=== PATIENT | female | born 1970 | race Caucasian/White ===

== ENCOUNTER 2017-07-13 11:01 | Emergency (ER) | payer SELFPAY ==
[~2017-07-13] VITALS: Ht 175.3 cm; Wt 84.0 kg
[~2017-07-13 11:01] MED LIST: FENTANYL PATCH; FIORCET; LEVO137T32; OXYC30TA89; [UNRECOGNIZED DRUG - OTHER]
[2017-07-13] MEDS ORDERED: KETOROLAC 60MG/2ML VIAL IM ONE (15:00)
[2017-07-13 16:40] VITALS: BP 141/86
[2017-07-13] MEDS ORDERED: HYDROCODONE/ACETAMINOPHEN 5/325MG TABLET PO ONE (17:30)
[2017-07-13 20:06] LABS: CLARITY URINE CLOUDY (CLEAR); COLOR URINE YELLOW (YELLOW); GLUCOSE URINE NEGATIVE (NEGATIVE); KETONES URINE NEGATIVE (NEGATIVE); LEUKOCYTE ESTERASE URINE 2+ (NEGATIVE); NITRITE URINE POSITIVE (NEGATIVE); OCCULT BLOOD URINE 1+ (NEGATIVE); PROTEIN URINE TRACE (NEGATIVE)
== END 2017-07-13 18:08 | disposition home or self-care (01) ==
LOC: ER 11:11
DX: M54.40 Lumbago with sciatica, unspecified side (principal); G89.29 Other chronic pain; E03.9 Hypothyroidism, unspecified; Z88.8 Allergy status to other drugs, medicaments and biological substances
CPT/HCPCS: 81001; 96372; 99283; J1885

== ENCOUNTER 2017-09-27 16:02 | Emergency (ER) | payer SELFPAY ==
[~2017-09-27] VITALS: Ht 167.6 cm; Wt 73.0 kg
[2017-09-27] MEDS ORDERED: PHENAZOPYRIDINE HCL 200MG TABLET PO ONE (22:45)
[2017-09-27] MEDS ORDERED: IBUPROFEN 600MG TABLET PO ONE (23:00)
[2017-09-27] MEDS ORDERED: DOXYCYCLINE HYCLATE 100MG CAPSULE PO ONE (23:45)
[2017-09-27 23:46] LABS: CLARITY URINE CLEAR (CLEAR); COLOR URINE YELLOW (YELLOW); KETONES URINE NEGATIVE (NEGATIVE); LEUKOCYTE ESTERASE URINE TRACE (NEGATIVE); NITRITE URINE NEGATIVE (NEGATIVE); OCCULT BLOOD URINE TRACE (NEGATIVE); PROTEIN URINE NEGATIVE (NEGATIVE); UROBILINOGEN URINE 0.2 E.U./dL (0.2-1.0)
[2017-09-27 23:56] VITALS: BP 130/70
== END 2017-09-27 23:58 | disposition home or self-care (01) ==
LOC: ER 16:43
DX: N89.8 Other specified noninflammatory disorders of vagina (principal); R30.0 Dysuria; Z88.8 Allergy status to other drugs, medicaments and biological substances; F17.200 Nicotine dependence, unspecified, uncomplicated
CPT/HCPCS: 81001; 87210; 87491; 87591; 99284; Z7610

== ENCOUNTER 2019-10-25 19:06 | Emergency (ER) | payer MEDICAID ==
[~2019-10-25] VITALS: Ht 167.6 cm; Wt 120.0 kg
[2019-10-25 19:33] VITALS: BP 155/138
== END 2019-10-25 22:00 | disposition left against medical advice (07) ==
LOC: ER 19:06
DX: R06.02 Shortness of breath (principal); Z53.21 Procedure and treatment not carried out due to patient leaving prior to being seen by health care provider

== ENCOUNTER 2021-02-01 23:42 | Emergency (ER) | payer MEDICAID ==
[~2021-02-01] VITALS: Ht 167.6 cm; Wt 117.5 kg
[~2021-02-01 23:42] MED LIST changes: +OXYC-582; -OXYC30TA89
[2021-02-02] MEDS ORDERED: ASPIRIN 81MG TABLET PO ONE (03:45)
[2021-02-02 04:37] LABS: BASOPHILS % 0.5 % (0.0-2.0); EOSINOPHILS % 0.1 % (0.0-5.0); HEMATOCRIT. 36.8 % (36.0-48.0); HEMOGLOBIN. 11.8 g/dL (12.0-16.0); LYMPHOCYTES % 18.5 % (20.0-50.0); MEAN CORPUSCULAR HEMOGLOBIN 23.4 pg (28.0-32.0); MEAN CORPUSCULAR VOLUME 72.7 fL (81.0-99.0); MEAN PLATELET VOLUME 7.9 fl (7.4-10.4); MONOCYTES % 5.5 % (2.0-8.0); NEUTROPHILS % 75.4 % (40.0-76.0); PLATELET 249 x1000/uL (130-400); RED BLOOD CELL COUNT 5.06 mill/uL (4.2-5.4); RED CELL DISTRIBUTION WIDTH 19.1 % (11.6-14.6)
[2021-02-02 04:45] LABS: CHLORIDE 103 mEq/L (98-107)
[2021-02-02 04:48] LABS: D-DIMER 0.73 mg/L FEU (<0.50); PARTIAL THROMBOPLASTIN TIME 28.2 sec (23.4-31.0); PROTHROMBIN TIME 11.2 sec (9.6-11.0)
[2021-02-02] MEDS ORDERED: FUROSEMIDE 40MG/4ML VIAL IV ONE (05:00)
[2021-02-02] MEDS: NITROGLYCERIN 0.4MG TABLET SL SL PRN ×3 (06:47→09:04)
[2021-02-02] MEDS ORDERED: LORAZEPAM 2MG/ML CPJ IM PRN (07:15)
[2021-02-02] MEDS ORDERED: ONDANSETRON 4MG ODT PO ONE (08:00)
[2021-02-02] MEDS ORDERED: ENOXAPARIN 120MG/0.8ML SYR SUBCUT ONE (08:00)
[2021-02-02] MEDS ORDERED: IOHEXOL-350 100 ML BOTTLE ONE (09:40)
[2021-02-02] MEDS ORDERED: ONDANSETRON HCL 4MG/2ML INJ IV ONE (13:30)
[2021-02-02] MEDS ORDERED: OXYCODONE HCL/ACETAMINOPHEN 5/325MG TABLET PO ONE (13:30)
[2021-02-02] MEDS ORDERED: MORPHINE SULFATE 10 MG/ML CPJ IV ONE (15:15)
[2021-02-02] MEDS ORDERED: DULOXETINE HCL 60MG DR CAPSULE PO ONE (15:15)
[2021-02-02] MEDS ORDERED: LORAZEPAM 2MG/ML CPJ IV ONE (19:15)
[2021-02-02 20:00] VITALS: BP 112/69
[2021-02-02] MEDS ORDERED: TOPIRAMATE 25MG TABLET PO SCH (21:00)
== END 2021-02-02 21:40 | disposition admitted as inpatient to this hospital (09) ==
LOC: ER 23:42
DX: I11.0 Hypertensive heart disease with heart failure (principal); I50.9 Heart failure, unspecified; R42 Dizziness and giddiness; Z88.8 Allergy status to other drugs, medicaments and biological substances; Z88.9 Allergy status to unspecified drugs, medicaments and biological substances; Z86.39 Personal history of other endocrine, nutritional and metabolic disease
CPT/HCPCS: 36415; 71045; 71275; 78582; 80053; 83690; 83880; 84484; 85025; 85379; 85610; 85730; 93005; 93970; 99285; A9540; J1650; J1940; J2060; J2270; J2405; Q0162; Q9967; Z7610